=== PATIENT | male | born 1955 | race Caucasian/White ===

== ENCOUNTER 2017-02-22 12:33 | Emergency (ER) | payer MEDICAID ==
[~2017-02-22] VITALS: Ht 172.7 cm; Wt 74.8 kg
[2017-02-22 12:41] VITALS: BP_SYST 136
[2017-02-22] MEDS ORDERED: KETOROLAC TROMETHAMINE 30 MG VIAL IM ONE (13:15)
[2017-02-22 14:30] VITALS: BP_SYST 129
== END 2017-02-22 14:30 | disposition home or self-care (01) ==
LOC: SED 12:33
DX: R10.9 Unspecified abdominal pain (principal); I10 Essential (primary) hypertension; E78.00 Pure hypercholesterolemia, unspecified; E11.29 Type 2 diabetes mellitus with other diabetic kidney complication; N28.9 Disorder of kidney and ureter, unspecified
CPT/HCPCS: 71110; 96372; 99284; J1885

== ENCOUNTER 2017-07-03 01:53 | Emergency (ER) | payer MEDICAID ==
[~2017-07-03] VITALS: Ht 172.7 cm; Wt 74.8 kg
[2017-07-03 01:55] VITALS: BP_SYST 105
[2017-07-03 02:58] VITALS: BP_SYST 107
== END 2017-07-03 02:58 | disposition home or self-care (01) ==
LOC: SED 01:53
DX: J20.9 Acute bronchitis, unspecified (principal); I12.0 Hypertensive chronic kidney disease with stage 5 chronic kidney disease or end stage renal disease; E11.22 Type 2 diabetes mellitus with diabetic chronic kidney disease; N18.6 End stage renal disease; E78.00 Pure hypercholesterolemia, unspecified; Z99.2 Dependence on renal dialysis
CPT/HCPCS: 71045; 82962; 99283

== ENCOUNTER 2017-10-17 15:03 | Outpatient (CLI) | payer OTHER, MEDICAID | END 2017-10-17 20:36 | disposition home or self-care (01) | LOC: SRD 15:03 | PROVIDERS: ATTEND Specialist | DX: R07.81 Pleurodynia (principal); E11.22 Type 2 diabetes mellitus with diabetic chronic kidney disease; I12.0 Hypertensive chronic kidney disease with stage 5 chronic kidney disease or end stage renal disease; N18.6 End stage renal disease; Z91.81 History of falling | CPT/HCPCS: 71046-TC; 71100 ==

== ENCOUNTER 2017-11-13 20:30 | Emergency (ER) | payer OTHER, MEDICAID ==
[~2017-11-13] VITALS: Ht 170.2 cm; Wt 61.2 kg
[2017-11-13 20:42] VITALS: BP_SYST 201
--- NOTE | 2017-11-13 20:42 | NUR ---
Patient to ER bed 1 to gown for evaluation. Side rails up. Report given to SASKIA REYNOLDS.
--- NOTE | 2017-11-13 21:00 | NUR ---
ER at bedside examining patient.
--- NOTE | 2017-11-13 21:00 | NUR ---
Patient appears altered, speaking coherent in intervals, c/o headache x 8 hrs with dizziness and facial numbness to right side. Patient does not appropriately answer questions at times, can state name and date of but is answering some questions inappropriately. Denies chest pain, denies N/V/D. Dialysis patient, received dialysis , , fri. Will continue to monitor closely.
--- NOTE | 2017-11-13 21:05 | NUR ---
# 20 gauge angiocath placed to left forearm. Use of asceptic technique. Opsite placed over site. Blood return noted. Blood for lab drawn from site. Flushed with 10 cc of normal saline. No evidence of infiltration noted. Patient tolerated well.
[2017-11-13] MEDS ORDERED: LABETALOL 100 MG/ 20ML VIAL IVP ONE (21:15)
[2017-11-13] MEDS ORDERED: NACL 0.9% 1,000 ML IV ONE (21:16)
[2017-11-13 21:40] LABS: CALCIUM 8.4 mg/dL (8.4-11.0); CREATININE 5.09 mg/dL (0.55-1.30); POTASSIUM 3.9 mmol/L (3.5-5.1)
[2017-11-13 21:42] LABS: INR 1.1 (0.80-1.20); PROTHROMBIN TIME 10.7 SECS (9.5-12.5)
--- NOTE | 2017-11-13 21:42 | NUR ---
Per Dr. Retana, hold Labetalol admin due to lower BP, BP is now 153/108
[2017-11-13 21:45] LABS: TOTAL BILIRUBIN 0.3 mg/dL (0.0-1.0)
[2017-11-13 21:57] LABS: BASOPHILS % (AUTO) 0.3 % (0.0-2.0); EOSINOPHILS # (AUTO) 0.2 K/uL (0.0-0.4); EOSINOPHILS % (AUTO) 1.5 % (0.0-4.0); HEMATOCRIT 37.1 % (36-54); HEMOGLOBIN 12.5 g/dL (14.0-18.0); LYMPHOCYTES # (AUTO) 1.3 K/uL (1.0-5.5); LYMPHOCYTES % (AUTO) 12.6 % (20.5-51.5); MEAN CORPUSCULAR HEMOGLOBIN 31 pg (27-31); MEAN CORPUSCULAR HGB CONC 34 % (32-36); MEAN CORPUSCULAR VOLUME 91 fL (79.0-98.0); MONOCYTES # (AUTO) 0.9 K/uL (0.0-1.0); MONOCYTES % (AUTO) 8.5 % (1.7-9.3); NEUTROPHILS # (AUTO) 7.8 K/uL (1.8-7.7); NEUTROPHILS % (AUTO) 77.1 % (40.0-70.0); PLATELET COUNT (AUTO) 282 K/uL (130-430); RED BLOOD CELL COUNT(AUTO) 4.08 MIL/uL (4.2-6.2); WHITE BLOOD COUNT (AUTO) 10.2 K/uL (4.8-10.8)
[2017-11-13] MEDS ORDERED: ASPIRIN 81 MG TAB.CHEW PO ONE (22:00)
--- NOTE | 2017-11-13 22:10 | NUR ---
Transfer acknowledgement signed by patient uncle.
--- NOTE | 2017-11-13 22:15 | NUR ---
Patient arguing with family at bedside stating he is upset over having to " go to another hospital, I didn't even want to come here." MD aware. Patient mentation improving, able to move all extremities, still c/o headache. Patient educated on importance of transfer and continuing to receive medical treatment. Patient consents to being transferred. Family remains at bedside.
[2017-11-13 22:25] VITALS: BP_SYST 153
--- NOTE | 2017-11-13 22:25 | NUR ---
Patient to be transferred to [facility]. Is being transferred due to higher level of care. Receiving facility has accepting physician and available space. ER physician has signed transfer form. Patient or responsible green party has agreed to transfer and signed form. Patient belongings inventoried and will be sent with patient. Copy of nursing notes, lab reports, EKG, Physicians Orders and X-rays to be sent with patient. Report called to Amy at receiving facility. Receiving physician is Bryson. [facility] ambulance service has been called for transfer by Evie. ETA is now.
== END 2017-11-13 22:25 | disposition short-term general hospital (02) ==
LOC: SED 20:30
DX: R51 Headache (principal); E11.29 Type 2 diabetes mellitus with other diabetic kidney complication; N28.9 Disorder of kidney and ureter, unspecified; E78.00 Pure hypercholesterolemia, unspecified; I10 Essential (primary) hypertension
CPT/HCPCS: 36415; 70450; 71045; 83690; 80053; 84484; 85025; 85610; 85730; 93005; 99285; J7030; 96360; J3490